=== PATIENT | male | born 2005 | race Caucasian/White ===

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

== ENCOUNTER 2023-02-08 09:48 | Emergency (ER) | payer MEDICAID ==
[2023-02-08] MEDS ORDERED: Diphtheria,Pertussis(Acell),Tetanus Vaccine 0.5 ML Syringe IM ONE (11:08)
[2023-02-08] MEDS ORDERED: Lidocaine 1% 10 ML MDV INJECT ONE (11:08)
== END 2023-02-08 12:45 | disposition home or self-care (01) ==
LOC: JD.ED 09:48
DX: S61.213A Laceration without foreign body of left middle finger without damage to nail, initial encounter (principal); Z86.16 Personal history of COVID-19; Z79.899 Other long term (current) drug therapy; Z91.040 Latex allergy status; W26.0XXA Contact with knife, initial encounter
CPT/HCPCS: 12002; 90471; 90715; 99282-25; J3490